=== PATIENT | female | born 1945 | race Caucasian/White ===

== ENCOUNTER 2017-07-17 09:24 | Outpatient (CLI) ==
--- NOTE | 2017-07-17 12:10 | US ---
EXAM: ULTRASOUND ABDOMINAL AORTA. HISTORY: Right iliac artery aneurysm COMPARISON: 07/16/2014 TECHNIQUE: Rosa scale and color doppler images. FINDINGS: Abdominal aortic measurements in centimeters as follows: Proximal, 2.2 x 1.9 Mid, 1.8 x 1.5 Distal, 1.5 x 1.5 Color flow seen through the aorta. The iliac arteries are not seen due to bowel gas. IMPRESSION: 1. Non-visualized iliac arteries due to bowel gas. 2. No evidence for abdominal aortic aneurysm.
== END 2017-07-17 09:25 | disposition home or self-care (01) ==
LOC: RAD 09:24
PROVIDERS: ATTEND Nurse Practitioner
DX: I72.3 Aneurysm of iliac artery (principal)
CPT/HCPCS: 76775